=== PATIENT | male | born 1960 | race Caucasian/White ===

== ENCOUNTER → 2018-03-28 | Outpatient (CLI) | payer OTHER ==
[~2018-03-28] MED LIST: CVS VITAMIN C PO; EXFORGE 5/321 TABLET PO; FLEXERIL10 MG PO; GLUCOSAMINE1000 MG PO; IBUPROFEN200 M1 PO; LEXAPRO20 MG PO; LIPITOR20 MG PO; MELADOX3 MG PO; MULTIVITAMIN1 EAC2 PO; OPTIFLEX-C400 MG PO; PERCOCET 5/31 TABLET PO; PV NEURO VITE1 EACH PO; ROXICODONE5 MG PO; TIMOLOL MALEATE15 M1 BOTH EYES; ULTRAM50 MG PO; VITAMIN B-12500 MC2 PO; VITAMIN C1000 MG PO; WELLBUTRIN SR150 MG PO; ZYRTEC10 M2 PO
== END | disposition home or self-care (01) ==
LOC: CDC 15:24
DX: Z01.810 Encounter for preprocedural cardiovascular examination (principal); M50.222 Other cervical disc displacement at C5-C6 level
CPT/HCPCS: 93000